=== PATIENT | female | born 1995 | race Hispanic/Latino ===

== ENCOUNTER 2025-06-03 08:49 | Emergency (ER) | payer BC ==
[~2025-06-03] VITALS: Ht 157.5 cm; Wt 54.5 kg
[2025-06-03 08:55] VITALS: PULSE 57; RESP 16; TEMP 97.8; O2SAT 98
[2025-06-03] MEDS ORDERED: AZITHROMYCIN250 MG PO (09:23)
== END 2025-06-03 09:29 | disposition home or self-care (01) ==
LOC: FSED 09:15
DX: R05.9 Cough, unspecified (principal); J06.9 Acute upper respiratory infection, unspecified; Z11.52 Encounter for screening for COVID-19
CPT/HCPCS: 0223U; 83518; 87400; 99283